=== PATIENT | male | born 1985 | race Caucasian/White ===

== ENCOUNTER 2020-06-11 10:06 | Emergency (ER) | payer OTHER ==
[~2020-06-11] VITALS: Ht 180.3 cm; Wt 87.1 kg
[2020-06-11 10:21] VITALS: Ht 180.3 cm; Wt 87.1 kg
--- NOTE | 2020-06-11 10:24 | NUR ---
NOTED SLURRED SPEECH. 5/5 BILAT UPPER EXTREMITIES. AAOX4. - ARM DRIFT.
--- NOTE | 2020-06-11 10:25 | NUR ---
PT IN BED 5. MD AWARE OF PT STATUS. PT PLACED ON FULL CM. GIRLFRIEND AT BEDSIDE.
--- NOTE | 2020-06-11 10:33 | NUR ---
AGENCY DOCUMENTATION DONE BY Staff Name/Title - : SAM RODRIGUEZ JR/CRUZ [email or web address] User ID - : [id number] Agency Name - : [employer] Time Documented - From - : [id number] To - : 1929
--- NOTE | 2020-06-11 10:45 | NUR ---
ASSUMED PATIENT CARE, NURSING ASSESSMENT COMPLETED. SEEN AND EVALUATED BY TO CT VIA GATO.
[2020-06-11 12:20] LABS: BASOPHIL % 0.3 % (0.2-1.5); PLATELET COUNT 293 x10^3mcL (152-348); RED CELL DISTRIBUTION WIDTH 13.9 % (12.1-16.2)
[2020-06-11 12:42] LABS: CALCIUM 8.6 mg/dL (8.5-10.1); CARBON DIOXIDE 31.2 mmol/L (21-32); CHLORIDE SERUM 100 mmol/L (98-107); CREATININE SERUM 0.8 mg/dL (0.7-1.3); GFR1 > 60 mL/min; GLUCOSE SERUM 102 mg/dL (74-106); POTASSIUM SERUM 3.9 mmol/L (3.5-5.1); SODIUM SERUM 135 mmol/L (136-145)
[2020-06-11 12:47] LABS: ALBUMIN 3.5 g/dL (3.4-5.0); ALKALINE PHOSPHATASE 109 U/L (46-116); ALT/SGPT 19 U/L (16-63); AST/SGOT 19 U/L (15-37); BILIRUBIN TOTAL 0.4 mg/dL (0.20-1.00); TOTAL PROTEIN, SERUM 8.7 g/dL (6.4-8.2)
[2020-06-11 13:09] LABS: AMPHETAMINE QUAL UR NONE DETECTED (See below)
[2020-06-11 15:00] VITALS: BP 130/78
--- NOTE | 2020-06-11 22:50 | NUR ---
Full Patient report given to [facility]. Patient assessment: Vitals Stable. Neuro: AOx4. Slurred speach. Equal BLE BUE strength. No facial droop. Slight gait when walking, does not require any assistance. Cardiac: Sinus Rhythm. S1/S2 Present. No Ectopy. MAP greater than 65 no vasopressors used. Circ: BLE BUE pulses 1+, No edema, cap refill >3s. skin color is normal for the patient. warm and dry. Resp: Room air. clear lung sounds. equal chest rise. GI: patient stated that he is having "difficulty swallowing." patient kept NPO. No speach evaluation completed. Active Bowel sounds x4. : Continent. Not visualized. Skin: WNL Pain: patient reported mild back pain caused from the gurney. *No actute changes in patient condition, while in the ED, during this shift.
--- NOTE | 2020-06-11 23:02 | NUR ---
Vitals: 19:15 - 98.7, 62, 149/50, 13, 94 20:15 - 67, 130/66, 17, 94 21:15 - 59, 124/73, 12, 97 22:15 - 79, 132/82, 14, 95
--- NOTE | 2020-06-11 23:12 | NUR ---
Full report given to Aldo at [facility] ED. All question answered.
== END 2020-06-11 23:00 | disposition short-term general hospital (02) ==
LOC: ED 10:06 → DU 14:25 → ED 23:00
PROVIDERS: Emergency Medicine
DX: R49.0 Dysphonia (principal); Z20.828 Contact with and (suspected) exposure to other viral communicable diseases; Z87.898 Personal history of other specified conditions
CPT/HCPCS: U0003